=== PATIENT | female | born 1975 | race Caucasian/White ===

== ENCOUNTER 2023-06-04 12:59 | Emergency (ER) | payer SELFPAY ==
[2023-06-04] VITALS (18 sets, daily range): BP systolic 112–180; BP diastolic 75–98; PULSE 68–98; RESP 16; TEMP 36.6–36.8; O2SAT 94–100
--- NOTE | ~2023-06-04 | CT_ITS ---
EXAMINATION: CT abdomen pelvis w con DATE: 06/04/2023 14:38 INDICATION: Hematuria with right flank pain. Abdominal fullness. TECHNIQUE: Computed tomography (CT) of the abdomen and pelvis was performed with 100 mL Omnipaque-350 intravenous contrast. Automated exposure control and iterative reconstruction technique were employe d. The dose-length product was 593.95 mGy-cm. COMPARISON: None FINDINGS: Mild dependent atelectasis in the bilateral lower lobes. Heart size is normal. No pericardial or pleu ral effusion. Focal hepatic steatosis at the ligamentum teres. Gallbladder, spleen, pancreas and bila teral adrenal glands are normal. There is a very large multilobular mass filling the majority pelvis and lower abdomen which measures 26.3 cm craniocaudally, 22.1 cm left to right and 14.4 cm AP. The ma ss demonstrates heterogeneous enhancement along with scattered coarse calcifications and suggestion o f some macroscopic intralesional fat at a cephalad component of the mass raising possibility of a regino moid tumor. There is significant mass effect exerted upon the bladder and bowels. The uterus and bila teral adnexa are unable to be identified. It is unclear whether these are displaced and compressed by the mass, replaced by the mass or surgically absent. There is dilation of the bilateral gonadal vein s which suggests a uterine or ovarian origin for the mass. There is mild bilateral hydroureteronephro sis likely resulting from extrinsic compression from the mass. No bowel obstruction. No free intraper itoneal gas or fluid. Moderate lumbar and mild lower thoracic spondylosis. IMPRESSION: 1. 26 x 22 x 14 cm heterogeneously enhancing lobular mass which appears to arise in the pelvis most l ikely from either the uterus or ovaries and could be either benign or malignant. The mass demonstrate s coarse calcifications and suggestion of what appears to be likely intralesional macroscopic fat, th e latter suggesting possibility of a dermoid. 2. Mild bilateral hydroureteronephrosis likely resulting from extrinsic compression of the ureters by the large pelvic mass. Reviewed, dictated and finalized at location A. IMPRESSION: 1. 26 x 22 x 14 cm heterogeneously enhancing lobular mass which appears to migel e in the pelvis most likely from either the uterus or ovaries and could be eith er benign or malignant. The mass demonstrates coarse calcifications and suggest ion of what appears to be likely intralesional macroscopic fat, the latter sugg esting possibility of a dermoid. 2. Mild bilateral hydroureteronephrosis likely resulting from extrinsic mandi jacque of the ureters by the large pelvic mass.
[2023-06-04 13:30] LABS: Basophils Absolute Auto 0.1 K/mm3 (0.0-0.1); Basophils Percent Auto 0.9 % (0.2-1.2); Eosinophils Absolute Auto 0.1 K/mm3 (0-0.3); Eosinophils Percent Auto 1.6 % (0-4.4); Hematocrit 42.1 % (37.0-47.0); Hemoglobin 13.5 g/dL (12.0-15.0); Immature Granulocyte Absolute 0.02 K/mm3 (0.00-0.031); Immature Granulocyte Percent A 0.3 % (0-0.5); Lymphocytes Absolute Auto 2.06 K/mm3 (0.9-3.2); Lymphocytes Percent Auto 29.5 % (18.3-44.2); Mean Corpuscular HGB Conc 32.1 g/dl (32-36); Mean Corpuscular Volume 90.3 fl (80-100); Mean Platelet Volume 10.5 fl (7.4-10.4); Monocytes Absolute Auto 0.5 K/mm3 (0.1-0.6); Monocytes Percent Auto 7.4 % (2.6-8.5); Neutrophils Absolute Auto 4.2 K/mm3 (1.3-6.7); Neutrophils Percent Auto 60.3 % (45.5-73.1); Platelet Count Result 291 k/mm3 (150-375); Red Blood Count 4.66 M/mm3 (4.2-5.4); Red Cell Distribution Width 13.4 % (11.5-14.5)
[2023-06-04 13:40] LABS: Alanine Aminotransferase 17 U/L (6-35); Albumin Level 4.8 g/dL (3.5-5.1); Alkaline Phosphatase 55 U/L (38-126); Anion Gap 8 mmol/L (8-16); Aspartate Amino Transferase 23 U/L (14-36); Bilirubin,Total 1.3 mg/dL (0.2-1.3); Blood Urea Nitrogen 18 mg/dL (7-17); Calcium 9.3 mg/dL (8.4-10.2); Carbon Dioxide 27 mmol/L (22-30); Chloride 102 mmol/L (98-107); Estimated CRCL calculation 65 ml/min; Estimated Glomerular Filt Rate 60; Glucose 95 mg/dL (65-110); Sodium 137 mmol/L (137-145)
[2023-06-04 13:51] LABS: Appearance Urine Clear (Clear); Bacteria Urine None Seen /hpf; Bilirubin Urine Negative (Negative); Blood Urine Trace (Negative); Color Urine Yellow (Yellow); Glucose Urine UA Negative (Negative); Ketones Urine Negative (Negative); Leukocyte Esterase Ur 2+ LEU/UL (Negative); Need Manual Microscopic Reviewed; Nitrate Urine Negative (Negative); Non Pathogenic Casts 0-2; Protein Urine Negative (Negative); RBC Urine 0-2 /hpf (0-2); Specific Grav Ur 1.015 (1.001-1.035); Squamous Epithelial Cell Urine Occasional /hpf (Few); Urobilinogen Urine 0.2 mg/dL (<2.0); WBC Urine 0-5 /hpf; pH Urine 5.5 (5.0-9.0)
--- NOTE | 2023-06-04 13:55 | ED.GENADULT ---
HPI - General Adult General Chief complaint: Urogenital-Female Stated complaint: sent by UC- hematuria Time Seen by Provider: 06/04/23 13:20 History of Present Illness HPI narrative: 47-year-old female presented to the ED for evaluation of right flank pain. Patient has no prior history of kidney stones but states she has had right flank pain over the course of the last few days. Patient did have outpatient follow-up today and was found to have hematuria. Related Data Allergies Allergy/AdvReac Type Severity Reaction Status Date / Time No Known Allergies Allergy Verified 06/04/23 16:52 Review of Systems Review of Systems: All systems reviewed & are unremarkable except as noted in HPI and below Exam Narrative: APPEARANCE: Well appearing, no pain, no distress, well-nourished. HEAD: normocephalic, atraumatic. EYES: PERRLA/EOMI, conjunctivae clear. NOSE: Normal no drainage NECK: Supple. No adenopathy, no masses. RESPIRATORY: Airway patent, respirations nonlabored. Clear to auscultation bilaterally, no rales, rhonchi, wheezing. CARDIOVASCULAR: Regular rate and rhythm without murmurs rubs or gallops. ABDOMINAL: Soft, palpable mass in the abdomen with no tenderness MUSCULOSKELETAL: Moves all extremities. Strength/ROM intact, No edema, No calf tenderness. NEURO: Alert. Cranial nerves II through XII intact. Grossly intact SKIN: Warm, dry. Normal Color PSYCHIATRIC: Normal affect/mood. Course Course Emergency Course: 47-year-old female presented ED for evaluation of hematuria and right flank pain. Patient did have a palpable mass in the abdomen. CT scan did show a large mass that was thought to be pelvic in origin. I discussed the case with Dr. Rothman and she recommended transfer to [place]. I discussed the case with Dr. Vann and patient was accepted for transfer. Patient was updated on the plan for transfer and further work-up at [place]. All question concerns were addressed and patient was stable at time of transfer. Vital Signs Vital signs: Vital Signs Temperature 98.0 F 06/04/23 13:05 Pulse Rate 87 06/04/23 13:05 Respiratory Rate 16 06/04/23 13:05 Blood Pressure 180/98 H 06/04/23 13:05 Pulse Oximetry 100 06/04/23 13:05 Oxygen Delivery Room Air 06/04/23 13:05 Temperature 98.3 F 06/04/23 18:03 Pulse Rate 77 06/04/23 18:03 Respiratory Rate 16 06/04/23 18:03 Blood Pressure 152/80 H 06/04/23 18:03 Pulse Oximetry 100 06/04/23 18:03 Oxygen Delivery Room Air 06/04/23 13:05 Medical Decision Making Vital Signs Vital Signs: Vital Signs Temperature 98.0 F 06/04/23 13:05 Pulse Rate 87 06/04/23 13:05 Respiratory Rate 16 06/04/23 13:05 Blood Pressure 180/98 H 06/04/23 13:05 Pulse Oximetry 100 06/04/23 13:05 Oxygen Delivery Room Air 06/04/23 13:05 Temperature 98.3 F 06/04/23 18:03 Pulse Rate 77 06/04/23 18:03 Respiratory Rate 16 06/04/23 18:03 Blood Pressure 152/80 H 06/04/23 18:03 Pulse Oximetry 100 06/04/23 18:03 Oxygen Delivery Room Air 06/04/23 13:05 Lab Data Lab results reviewed: Yes I reviewed the patient's lab results. 06/04/23 13:20 06/04/23 13:20 Labs: Lab Results 06/04/23 06/04/23 Range/Units 13:20 13:25 WBC 7.0 (4.5-10.0) K/mm3 RBC 4.66 (4.2-5.4) M/mm3 Hgb 13.5 (12.0-15.0) g/dL Hct 42.1 (37.0-47.0) % MCV 90.3 (80-100) fl MCH 29.0 (26-34) pg MCHC 32.1 (32-36) g/dl RDW 13.4 (11.5-14.5) % Plt Count 291 (150-375) k/mm3 MPV 10.5 H (7.4-10.4) fl Immature Gran % (Auto) 0.3 (0-0.5) % Neut % (Auto) 60.3 (45.5-73.1) % Lymph % (Auto) 29.5 (18.3-44.2) % [place] % (Auto) 7.4 (2.6-8.5) % Eos % (Auto) 1.6 (0-4.4) % Baso % (Auto) 0.9 (0.2-1.2) % Lymph # (Auto) 2.06 (0.9-3.2) K/mm3 [place] # (Auto) 0.5 (0.1-0.6) K/mm3 Eos # (Auto) 0.1 (0-0.3) K/mm3 Baso # (Auto) 0.1 (0.0-0.1) K/mm3 Abs Immat Gran (auto) 0.02 (0.
[2023-06-04 13:57] LABS: Add Urine Microscopic? YES
--- NOTE | 2023-06-04 15:53 | PC.NURSE ---
VS reviewed with [facility] transfer center, states they will call when there is a room available.
--- NOTE | 2023-06-04 20:04 | PC.NURSE ---
this RN took report from Marek ordaz and assumed care of PT at 1915.
== END 2023-06-04 20:38 | disposition short-term general hospital (02) ==
LOC: ANHED 13:59
PROVIDERS: Emergency Medicine; Emergency Provider Emergency Medicine
DX: R19.00 Intra-abdominal and pelvic swelling, mass and lump, unspecified site (principal); N13.30 Unspecified hydronephrosis
CPT/HCPCS: 36415; 74177; 80053; 81001; 81025; 85025; 99285; Q9967